=== PATIENT | female | born 1980 | race Caucasian/White ===

== ENCOUNTER 2024-03-30 20:08 | Emergency (ER) | payer OTHER ==
[2024-03-30] MEDS ORDERED: ONDANSETRON 4 MG/2 ML VIAL ONE (21:12)
[2024-03-30] MEDS ORDERED: FAMOTIDINE 20 MG/2 ML VIAL IV ONE (21:13)
[2024-03-30] MEDS ORDERED: MORPHINE 4 MG/ML SYR ONE (21:13)
[2024-03-30] MEDS ORDERED: NA CHLORIDE 0.9% 1,000 ML ONE (21:13)
[2024-03-30 22:08] LABS: Absolute Eosinophils 0.1 K/uL (0-0.5); Absolute Lymphocytes (CBC) 1.7 K/uL (0.7-4.9); Absolute Monocytes 0.5 K/uL (0.1-1.3); Absolute Neutrophil 7.2 K/uL (1.8-8.0); Basophils % 0.5 % (0-1.3); Hematocrit 40.4 % (36.0-45.0); Hemoglobin 13.4 g/dL (12.0-15.0); Lymphocytes % 17.8 % (15.3-44.8); MCHC 33.2 g/dL (32.0-36.0); MCV 93.4 fL (80-100); MPV 8.1 fL (7.6-11.3); Neutrophils % 75.7 % (41.7-73.7); Platelets 301 thou/uL (152-406); RBC Red Blood Cell Count 4.33 M/uL (3.86-4.86); Red Cell Distribution Width 12.9 % (12.1-15.2)
[2024-03-30 22:21] LABS: Albumin 3.9 g/dL (3.4-5.0); Anion Gap 8.3 mEq/L (5.0-15.0); Bilirubin Total 0.2 mg/dL (0.2-1.0); Globulin 3.8 g/dL (2.3-3.5); Potassium 4.3 mEq/L (3.5-5.1); Protein, Total 7.7 g/dL (6.4-8.2)
[2024-03-30] MEDS ORDERED: SIMETHICONE 80 MG CHEWABLE TAB ONE (23:48)
[2024-03-30] MEDS ORDERED: BISACODYL E.C. 5 MG TAB PO ONE (23:49)
--- NOTE | 2024-03-31 01:04 | ER ---
Nurse's Notes [facility] Name: Ankita Bourgeois Age: 43 yrs Sex: Female : 1980 Arrival Date: 03/30/2024 Time: 20:08 Bed 2 Private MD: Diagnosis: Abdominal pain, Generalized;Constipation;Gas pain Presentation: 03/30 20:30 Chief complaint: Patient states: Abdominal pain since 3 pm today, fluctuates in nj1 severity. Denies nausea, vomiting and diarrhea. Coronavirus screen: Vaccine status: Patient reports receiving the 1st dose of the Covid vaccine. Ebola Screen: Patient denies travel to an Ebola-affected area in the 21 days before illness onset. Initial Sepsis Screen: Does the patient meet any 2 criteria? HR > 90 bpm. No. Patient's initial sepsis screen is negative. Does the patient have a suspected source of infection? No. Patient's initial sepsis screen is negative. Risk Assessment: Do you want to hurt yourself or someone else? Patient reports no desire to harm self or others. Onset of symptoms was March 30, 2024 at 15:00. 20:30 Method Of Arrival: Ambulatory [facility] 20:30 Acuity: VANI 3 [facility] Triage Assessment: 20:33 General: Appears uncomfortable, Behavior is cooperative, appropriate for age. Pain: or1 Complains of pain in abdomen Pain currently is 10 out of 10 on a pain scale. Quality of pain is described as burning. Neuro: Level of Consciousness is awake, alert, obeys commands, Oriented to person, place, time, situation. Cardiovascular: Patient's skin is warm and dry. GI: Reports lower abdominal pain, upper abdominal pain, Patient currently denies diarrhea, nausea, vomiting. Historical: - Allergies: 20:31 Ibuprofen; nj1 20:31 Aspirin; nj1 - PMHx: 20:31 Hypertensive disorder; nj1 - PSHx: 20:31 Total abdominal hysterectomy; Appendectomy; Cervical surgery; Ankle surgery, right; nj1 - Immunization history:: Client reports receiving the 1st dose of the Covid vaccine. - Infectious Disease History:: Denies. - Social history:: Smoking status: Patient denies any tobacco usage or history of. Screenin/04 01:34 [facility] ED Fall Risk Assessment (Adult) History of falling in the last 3 months, jb4 including since admission No falls in past 3 months (0 pts) Confusion or Disorientation No (0 pts) Intoxicated or Sedated No (0 pts) Impaired Gait No (0 pts) Mobility Assist Device Used No (0 pt) Altered Elimination No (0 pt) Score/Fall Risk Level 0 - 2 = Low Risk Oriented to surroundings, Maintained a safe environment. Assessment: 03/30 21:57 General: Appears in no apparent distress. Behavior is calm, cooperative. Pain: [facility] Complains of pain in abdomen. Neuro: No deficits noted. Cardiovascular: No deficits noted. Respiratory: No deficits noted. GI: Reports lower abdominal pain, upper abdominal pain, cramping, incontinence. : No deficits noted. No signs and/or symptoms were reported regarding the genitourinary system. EENT: No deficits noted. No signs and/or symptoms were reported regarding the EENT system. Derm: No deficits noted. No signs and/or symptoms reported regarding the dermatologic system. Musculoskeletal: No deficits noted. No signs and/or symptoms reported regarding the musculoskeletal system. Vital Signs: 20:30 BP 169 / 100; Pulse 103; Resp 18; Temp 99.4; Pulse Ox 98% on R/A; Weight 65.77 kg; or1 Height 5 ft. 3 in. ; Pain 10/10; 23:28 BP 142 / 82; Pulse 82; Resp 14; Pulse Ox 100% ; Pain 4/10; [facility] 03/31 00:43 BP 142 / 88; Pulse 98; Resp 18; Pulse Ox 100% ; Pain 8/10; [facility] 03/30 20:30 Body Mass Index 25.69 (65.77 kg, 160.02 cm) [facility] 03/30 20:30 Pain Scale: Adult [facility] 23:28 Pain Scale: Adult [facility] 03/31 00:43 Pain Scale: Adult [facility] ED Course: 03/30 20:10 Patient arrived in ED. mr 20:11 Sally Walker [facility]-C [facility]. sb4 20:11 Casper Castro MD is Attending Physician. sb4 20:31 Triage completed. nj1 20:32 Arm band placed on left wrist. nj1 21:56 Inserted saline lock: 22 gauge in right antecubital area, using aseptic technique. [facility] Blood collected. Flushed with 10 mL NS. 21:59 CBC with Diff [address]. [facility] 21:59 CMP Sent. jm12 21:[address] [facility] 23:02 CT Abd/Pelvis - IV Contrast Only In Process Unspecified. EDSD 03/31 00:36 Urinalysis w/ reflexes Sent. [facility] 00:36 Test, Urine Sent. [facility] Administered Medications: 03/30 21:59 Drug: NS 0.9% IV 1000 ml IV at 1 bolus Per protocol; 1000 mL bolus Route: IV; Rate: 1 jm12 bolus; Site: right antecubital; 21:59 Drug: Famotidine IVP 20 mg IVP once; dilute with 10 mL 0.9% NaCl; give over [address] [facility] Route: IVP; Site: right antecubital; :59 Drug: Ondansetron IVP 4 mg IVP once; over 2 minutes Route: IVP; Site: right antecubital;jm 21:59 Drug: morphine IVP or IV 4 mg IVP once over 4 mins Route: IVP; Infused Over: [address] mins; [facility] Site: right antecubital; 22:26 Follow up: Response: Pain is decreased jm 23:53 Drug: Bisacodyl PO 5 mg PO once Route: PO; 23:53 Drug: Simethicone PO 60 mg PO once Route: PO; [facility] 03/31 01:33 Drug: Lactulose PO 20 grams 30 ml PO once Volume: 30 ml; Route: PO; 4 01:33 Drug: Hydrocodone-Acetaminophen PO (7.5 mg-325 mg) 1 tabs PO once Route: PO; 4 Outcome: 01:04 Discharge ordered by . [facility] 01:34 Discharged to home ambulatory, with family, [facility] 01:34 Condition: stable 01:34 Discharge instructions given to patient, Instructed on discharge instructions, follow up and referral plans. Demonstrated understanding of instructions, follow-up care, 01:34 Patient left the ED. jb4 Signatures: Dispatcher [employer] EDSD Eliana Butt, Carlos Alston, RN RN jb4 Sally Walker PA-C PA-C sb4 Yue Carrion, KELLY RN nj1 Anna Tran RN RN jm12
--- NOTE | 2024-03-31 01:04 | EDPHYS ---
Physician Documentation [facility] Name: Ankita Bourgeois Age: 43 yrs Sex: Female : 1980 Arrival Date: 03/30/2024 Time: 20:08 Bed 2 Private MD: ED Physician Casper Castro HPI: 03/30 20:42 This 43 yrs old Female presents to ER via Ambulatory with complaints of Abdominal Pain. sb4 20:42 The patient presents with abdominal pain that is diffuse. Onset: The symptoms/episode sb4 began/occurred 5 hour(s) ago. The symptoms do not radiate. Associated signs and symptoms: none. The symptoms are described as intermittent, sharp. Modifying factors: The symptoms are alleviated by nothing, the symptoms are aggravated by pressure. The patient has not experienced similar symptoms in the past. The patient has not recently seen a physician. Historical: - Allergies: 20:31 Ibuprofen; nj1 20:31 Aspirin; nj1 - PMHx: 20:31 Hypertensive disorder; nj1 - PSHx: 20:31 Total abdominal hysterectomy; Appendectomy; Cervical surgery; Ankle surgery, right; nj1 - Immunization history:: Client reports receiving the 1st dose of the Covid vaccine. - Infectious Disease History:: Denies. - Social history:: Smoking status: Patient denies any tobacco usage or history of. ROS: 20:42 Constitutional: Negative for fever, chills, and weight loss, sb4 20:42 Abdomen/GI: Positive for abdominal pain, 20:42 All other systems are negative, Exam: 20:42 Head/Face: Normocephalic, atraumatic. Eyes: Extra-ocular motions intact. Periorbital sb4 areas with no swelling, redness, or edema. ENT: Mucous membranes moist. Respiratory: Lungs have equal breath sounds bilaterally, clear to auscultation and percussion. No rales, rhonchi or wheezes noted. No increased work of breathing, no retractions or nasal flaring. Skin: Warm, dry with normal turgor. Normal color with no rashes, no lesions, and no evidence of cellulitis. 20:42 Constitutional: The patient appears alert, awake, in obvious pain, uncomfortable, crying 20:42 Cardiovascular: Rate: tachycardic, Rhythm: regular, 20:42 Abdomen/GI: Inspection: distension, that is mild, Bowel sounds: normal, Palpation: moderate abdominal tenderness, in all quadrants, Vital Signs: 20:30 BP 169 / 100; Pulse 103; Resp 18; Temp 99.4; Pulse Ox 98% on R/A; Weight 65.77 kg; az1 Height 5 ft. 3 in. ; Pain 10/10; 23:28 BP 142 / 82; Pulse 82; Resp 14; Pulse Ox 100% ; Pain 4/10; [facility] 03/31 00:43 BP 142 / 88; Pulse 98; Resp 18; Pulse Ox 100% ; Pain 8/10; [facility] 03/30 20:30 Body Mass Index 25.69 (65.77 kg, 160.02 cm) [facility] 03/30 20:30 Pain Scale: Adult [facility] 23:28 Pain Scale: Adult [facility] 03/31 00:43 Pain Scale: Adult [facility] MDM: 03/30 20:17 Patient medically screened. sb4 03/31 01:00 Data reviewed: vital signs, nurses notes, lab test result(s), radiologic studies, and sb4 as a result, I will discharge patient. Care significantly affected by the following chronic conditions: Hypertension. Counseling: I had a detailed discussion with the patient and/or guardian regarding the historical points, exam findings, and any diagnostic results supporting the discharge/admit diagnosis, the presence of at least one elevated blood pressure reading (>120/80) during this emergency department visit, lab results, radiology results, to return to the emergency department if symptoms worsen or persist or if there are any questions or concerns that arise at home. 03/30 20:41 Order name: CBC with Diff; Complete Time: 22:13 sb4 03/30 20:41 Order name: CMP; Complete Time: 22:21 sb4 03/30 20:41 Order name: Lipase; Complete Time: 22:21 sb4 03/30 20:41 Order name: Test, Urine; Complete Time: 01:19 sb4 03/30 20:41 Order name: Urinalysis w/ reflexes; Complete Time: 01:19 sb4 03/30 20:41 Order name: CT Abd/Pelvis - IV Contrast Only sb4 03/30 20:41 Order name: IV Saline Lock; Complete Time: 21:59 sb4 03/30 20:41 Order name: Labs collected and sent; Complete Time: 21:59 sb4 Administered Medications: 03/30 21:59 Drug: NS 0.9% IV 1000 ml IV at 1 bolus Per protocol; 1000 mL bolus Route: IV; Rate: 1 jm12 bolus; Site: right antecubital; 21:59 Drug: Famotidine IVP 20 mg IVP once; dilute with 10 mL 0.9% NaCl; give over 2 minutes jm12 Route: IVP; Site: right antecubital; 21:59 Drug: Ondansetron IVP 4 mg IVP once; over 2 minutes Route: IVP; Site: right antecubital;jm12 21:59 Drug: morphine IVP or IV 4 mg IVP once over 4 mins Route: IVP; Infused Over: 4 mins; jm12 Site: right antecubital; 22:26 Follow up: Response: Pain is decreased jm12 23:53 Drug: Bisacodyl PO 5 mg PO once Route: PO; jm12 23:53 Drug: Simethicone PO 60 mg PO once Route: PO; 12 03/31 01:33 Drug: Lactulose PO 20 grams 30 ml PO once Volume: 30 ml; Route: PO; jb4 01:33 Drug: Hydrocodone-Acetaminophen PO (7.5 mg-325 mg) 1 tabs PO once Route: PO; jb4 Disposition: 01:34 Co-signature as Attending Physician, Casper Castro MD I agree with the assessment sp4 and plan of care. I reviewed the patient's care provided by Advanced Practice Provider \T\ agree w/ the diagnosis \T\ care plan. I personally saw the pt \T\ performed a substantive portion of the visit, incldng all aspects of the (History/Exam/Medical Decision Making). Disposition Summary: 03/31/24 01:04 Discharge Ordered Notes: Location: Home sb4 Problem: new sb4 Symptoms: have improved sb4 Condition: Stable sb4 Diagnosis - Abdominal pain, Generalized sb4 - Constipation sb4 - Gas pain sb4 Followup: sb4 - With: Emergency Department - When: As needed - Reason: Trouble breathing, Worsening of condition Discharge Instructions: - Discharge Summary Sheet sb4 - Constipation, Adult, [id number] sb4 Forms: - Patient Portal Instructions sb4 - Leadership Thank You Letter sb4 Signatures: Dispatcher [employer] Carlos Mercedes RN RN jb4 Sally Walker PA-C PARubioC sb4 Casper Castro MD MD sp4 Yue Carrion RN RN nj1 Anna Tran RN RN jm12
[2024-03-31 01:07] LABS: Sqamous Epithelial <5 /HPF (None Seen); Urine Bacteria None Seen /HPF (<20); Urine Bilirubin NEGATIVE (Negative); Urine Blood Trace (Negative); Urine Clarity Clear (Clear); Urine Color Colorless (Yellow); Urine Culture Reflex Order NOT NEEDED; Urine Glucose NEGATIVE (Negative); Urine Ketones NEGATIVE (Negative); Urine Microscopic Reflex YN ORDER UMIC; Urine Nitrite NEGATIVE (Negative); Urine Protein NEGATIVE (Negative); Urine RBC <5 /HPF (None Seen); Urine Urobilinogen Normal (Normal); Urine WBC <5 /HPF (<5); Urine pH 6.5 (5.0-7.0)
[2024-03-31 01:18] LABS: Specific Gravity > 1.030 (1.005-1.030)
[2024-03-31] MEDS ORDERED: HYDROCODONE/APAP 7.5/325 MG TAB ONE (01:25)
[2024-03-31] MEDS ORDERED: LACTULOSE 20 GM/30 ML UCUP ONE (01:26)
[2024-03-31 05:36] VITALS: TEMP 99.4
[2024-03-31 05:42] VITALS: O2SAT 100
[2024-03-31 05:43] VITALS: BP 142/88
--- NOTE | 2024-04-01 11:19 | RAD REPORT ---
EXAM DESCRIPTION: CT - Abdomen Pelvis W Contrast - 03/31/2024 6:46 am CLINICAL HISTORY: 43 years Female; ABD PAIN; IV ONLY Bed Name: 2 TECHNIQUE: CT of the abdomen and pelvis with intravenous contrast. All CT scans at this facility use dose modulation, iterative reconstruction, and/or weight based dosi ng when appropriate to reduce radiation dose to as low as reasonably achievable. COMPARISON: None. FINDINGS: Lower thorax: Lung bases are clear Abdomen: Stomach: Small hiatal hernia. Liver: Ill-defined hypodensity in the right hepatic lobe measuring 1.1 cm. No intrahepatic ductal dis tention. Gallbladder: Nondistended Pancreas: Within normal limits Spleen: Within normal limits Right kidney: No hydronephrosis. No focal lesion. Left kidney: No hydronephrosis. 3mm renal stone. Adrenal glands: Within normal limits Vascular structures: Within normal limits Nodes: No lymphadenopathy by size criteria Pelvis: Small bowel: No significant distention. Appendix: Not visualized. No pericecal inflammatory changes. Colon: No distention or acute pericolonic edema. Peritoneum: No free intraperitoneal fluid or air. Bones: No acute bone findings. Bladder: Unremarkable. Reproductive organs: No acute findings. 1.7 cm corpus luteal cyst in the right ovary. IMPRESSION: 1. No acute abdominopelvic findings. 2. Left-sided nephrolithiasis. No hydronephrosis. 3. Ill-defined hypodensity in the right hepatic lobe measuring 1.1 cm, incompletely characterized. Recommend nonemergent multiphasic liver MR for further evaluation. Electronically signed by: Tres Shaw MD 03/30/2024 11:22 PM T Z9 Due to temporary technical issues with the PACS/Fluency reporting system, reports are being signed by the in house radiologist without review as a courtesy to ensure prompt reporting. The interpreting r adiologist is fully responsible for the content of the report.
== END 2024-03-31 01:34 | disposition home or self-care (01) ==
LOC: ER 20:08
DX: K59.00 Constipation, unspecified (principal); R14.1 Gas pain
CPT/HCPCS: 85025; 81001; 36415; 81025; 83690; 80053; 74177; Q9967; J2405; J7030; 96374; 96375; 99284